=== PATIENT | male | born 1970 | race Caucasian/White ===

== ENCOUNTER → 2021-04-26 09:50 | Outpatient (CLI) | payer BC, SELFPAY ==
[2021-04-27 03:58] LABS: SARS-CoV-2 RNA PCR Negative
== END ==
PROVIDERS: PCP Internal Medicine; Visit Provider Internal Medicine
DX: R09.89 Other specified symptoms and signs involving the circulatory and respiratory systems (principal); Z20.822 Contact with and (suspected) exposure to COVID-19
CPT/HCPCS: C9803; U0003; U0005